=== PATIENT | male | born 1990 | race Two or more races ===

== ENCOUNTER 2016-04-25 18:05 | Emergency (ER) | payer SELFPAY ==
[~2016-04-25] VITALS: Ht 165.1 cm; Wt 61.2 kg
[2016-04-25] MEDS ORDERED: LIDOCAINE W/ EPINEPHRINE 1% 20ML VIAL ONE (23:20)
[2016-04-25] MEDS ORDERED: LIDOCAINE W/ EPINEPHRINE 1% 20ML VIAL SC ONE (23:45)
[2016-04-26 00:02] VITALS: BP 129/72
[2016-04-26] MEDS ORDERED: NEOMYCIN-BACITRACIN-POLYM UNITDOSE PKG TOP OINT TOP ONE (01:30)
[2016-04-26] MEDS ORDERED: TETANUS-DIPTH-ACEL PERTUSSIS 0.5ML SYRG IM ONE (01:45)
== END 2016-04-26 02:21 | disposition home or self-care (01) ==
LOC: ER 18:10 → EDBD 18:10 → ER 04-26 02:21
DX: S01.511A Laceration without foreign body of lip, initial encounter (principal); F10.129 Alcohol abuse with intoxication, unspecified; F17.210 Nicotine dependence, cigarettes, uncomplicated; F12.10 Cannabis abuse, uncomplicated; Y90.9 Presence of alcohol in blood, level not specified; Z23 Encounter for immunization; W01.0XXA Fall on same level from slipping, tripping and stumbling without subsequent striking against object, initial encounter; Y93.89 Activity, other specified; Y99.8 Other external cause status; Y92.098 Other place in other non-institutional residence as the place of occurrence of the external cause
CPT/HCPCS: 12011; 70450; 90471; 90715; 94761